=== PATIENT | female | born 1995 | race Two or more races ===

== ENCOUNTER 2023-03-11 13:03 | Day surgery (SDC) | payer OTHER, SELFPAY ==
--- NOTE | 2023-03-10 14:49 | P.CONAN_ITS ---
Documented by User: Rosa Arguello NP 03/10/23 14:49 HPI - Anesthesia Eval Consult details Narrative: 27yo F for Upper Endoscopy and Colonoscopy [facility] Past Medical History Medical History Anxiety and depression Social History Social History Advance Directives: No Advance Directives Information Provided: Yes Meds Allergies Allergy/AdvReac Type Severity Reaction Status Date / Time No Known Allergies Allergy Verified 03/10/23 14:47 Home Medications Medication Instructions Recorded Confirmed Last Taken Type omeprazole 20 mg capsule,delayed 20 mg PO DAILY 03/10/23 03/10/23 Unknown History release sertraline 50 mg tablet 50 mg PO DAILY 03/10/23 03/11/23 03/11/23 08:00 History Exam Exam Date and Time: March 10, [id number] Assessment and Plan Assessment Anesthesia Assessment: Chart Reviewed Documented by User: Sarah Carpio MD 03/11/23 13:46 [facility] Past Medical History Medical History Anxiety and depression Family History Family history of problems with anesthesia: No Surgical History History of Problems with Anesthesia: No Social History Social History Advance Directives: No Advance Directives Information Provided: Yes Meds Allergies Allergy/AdvReac Type Severity Reaction Status Date / Time No Known Allergies Allergy Verified 03/10/23 14:47 Home Medications Medication Instructions Recorded Confirmed Last Taken Type omeprazole 20 mg capsule,delayed 20 mg PO DAILY 03/10/23 03/10/23 Unknown History release sertraline 50 mg tablet 50 mg PO DAILY 03/10/23 03/11/23 03/11/23 08:00 History Exam Airway Mallampati Class: I TM Dist: >3cm Neck ROM: Full Loose/Missing/Broken Teeth: No Heart: rr Lungs: cta Assessment and Plan Assessment Anesthesia Assessment: Anesthesia Plan Discussed Final Anesthetic Review Family History of Problems with Anesthesia: No History of Problems with Anesthesia: No NPO: Yes ASA Class: I Final Preanesthetic Review: No Changes in Pt Med Stat, Meds/Allgs Chart Reviewed, Consent Obtained/Reviewed and Anes Risks/Benef Reviewed Patient Risk: Low Procedure Risk: Low Anesthetic Plan Anesthetic Plan: MAC:
[2023-03-11 13:40] VITALS: BP 115/75; PULSE 94; RESP 18; TEMP 36.2; O2SAT 99; BMI 20.8
[2023-03-11 13:42] LABS: UPreg QC Valid YES; Urine Pregnancy NEGATIVE (NEGATIVE)
--- NOTE | 2023-03-11 13:45 | MHC.SHP ---
Pre-Procedural Eval Section A Date of Service: 03/11/23 The patient is an INPATIENT: No Changes since office visit: No Cold of Flu in the past 2 weeks, No New Medical Problems, No Changes in Medication and No Patient answered all questions The History & Physical has been completed within 30 days and I have reviewed it.: No Section B Chief Complaint: Peptic ulcer, site unspecified,Noninfective gastro Allergies: Allergies Allergy/AdvReac Type Severity Reaction Status Date / Time No Known Allergies Allergy Verified 03/10/23 14:47 Plan I have reviewed the history and physical and performed a pertinent physical examination on my patient. No changes have occurred unless specified. Time Spent With Patient Time: Total time managing care of this patient today ____ minutes.
[2023-03-11] MEDS: Lactated Ringers 1,000 ML 100 ML IVCONT (13:51)
[2023-03-11 14:35] VITALS: BP 86/59; PULSE 82; RESP 18; TEMP 36.3; O2SAT 100
[2023-03-11 14:50] VITALS: BP 106/58; PULSE 59; RESP 16; TEMP 36.3; O2SAT 99
--- NOTE | 2023-03-12 00:06 | OP_ITS ---
DATE OF SERVICE: 03/11/2023 SURGEON: Luis Martins MD INDICATIONS: Peptic ulcer disease and colitis. PREOPERATIVE DIAGNOSIS: POSTOPERATIVE DIAGNOSIS: PROCEDURE PERFORMED: Upper endoscopy with biopsy, colonoscopy to the terminal ileum with biopsy. ESTIMATED BLOOD LOSS: COMPLICATIONS: ANESTHESIA: Monitored anesthesia care. ASSISTANTS: SPECIMENS: DESCRIPTION OF PROCEDURE: A history and physical was performed. The risks and benefits of the procedure were explained to the patient. Informed consent was obtained. The patient was placed in the left lateral decubitus position. A digital rectal exam was performed prior to the colonoscopy. The Olympus video gastroscope was introduced into the esophagus, stomach, and duodenum. Examination was performed. The scope was removed she was repositioned for colonoscopy. The Olympus pediatric video colonoscope was introduced into the rectum and advanced to the cecum without difficulty. The cecum was identified by transillumination, palpation, and identification of ileocecal valve. Examination was performed. The scope was removed. She tolerated both procedures well and was returned to the recovery area in stable condition. FINDINGS: Upper endoscopy: 1. Esophagus: The esophagus was normal. Biopsies were obtained from the EG junction. 2. Stomach: The stomach was normal. Biopsies were obtained from the antrum. No ulcer was identified. 3. Duodenum: The bulb and 2nd portion were normal. Biopsies were obtained from the 2nd portion. Colonoscopy: The terminal ileum was examined and appeared normal. This was biopsied. The visualized colonic mucosa was normal. There was no evidence of colitis. Random biopsies were obtained from the right colon, left colon, and rectum. There was some stool coating mucosa mainly in the right colon which limits the sensitivity examination for detection of lesions. This was washed and suctioned as best possible. Retroflexed examination was normal. IMPRESSION: Normal upper endoscopy, normal colonoscopy. RECOMMENDATION: Follow up the biopsy results. Screening colonoscopy at age 44. MD IRINA Calabrese/GLENN / [id number]
== END 2023-03-11 15:30 | disposition home or self-care (01) ==
PROVIDERS: Nurse Practitioner; PCP Nurse Practitioner; Visit Provider Internal Medicine Gastroenterology
PROC: (CPT 45380; principal; 2023-03-11 13:50)
DX: K52.9 Noninfective gastroenteritis and colitis, unspecified (principal); R10.13 Epigastric pain; Z87.11 Personal history of peptic ulcer disease; F41.8 Other specified anxiety disorders; Z79.899 Other long term (current) drug therapy
CPT/HCPCS: 45380; 43239; 81025; 88305; 88342